=== PATIENT | male | born 1955 | race Caucasian/White ===

== ENCOUNTER 2018-04-04 17:55 | Inpatient (IN) ==
[2018-04-04] MEDS ORDERED: ONDANSETRON 4 MG/2 ML VIAL IV STA (18:14)
[2018-04-04] MEDS ORDERED: ASPIRIN 325 MG TABLET PO STA (18:14)
[2018-04-04] MEDS ORDERED: NITROGLYCERIN 2% OINT 1 INCH/GM PACK TOP STA (18:14)
[2018-04-04] MEDS ORDERED: ENOXAPARIN 120 MG/0.8 ML SYRINGE SUBCUT STA (18:19)
[2018-04-04 18:51] LABS: Basophils % 0.3 % (0.0-0.8); Eosinophils # 0.1 10*3/uL (0.0-0.87); Eosinophils % 1.4 % (0.00-10.9); Immature Granulocytes % 1.4 %; Immature Granulocytes Absolute 0.13 #; Lymphocytes # 1.4 10*3/uL (1.4-4.0); Lymphocytes % 14.4 % (21.2-54.2); Mean Corpuscular HGB Conc 30.6 GM/DL (32-36); Mean Corpuscular Hemoglobin 28 PG (27-34); Mean Corpuscular Volume 92.8 FL (87-102); Mean Platelet Volume 11.9 FL (9.6-12.0); Monocytes % 10.9 % (1.7-12.7); NRBC # 0.04 10*3/uL; Neutrophils # 6.7 10*3/uL (1.4-7.4); Neutrophils % 71.6 % (38.7-73.9); Platelet Count 204 T/CUMM (130-400); Red Blood Count 1.94 MC/CUMM (3.8-5.5); Red Cell Distribution Width 15.9 % (9.3-17.3); White Blood Count 9.4 T/CUMM (4-12)
[2018-04-04 19:12] LABS: INR 1.1; PT Patient Result 11.8 SECS
[2018-04-04 19:13] LABS: Alanine Aminotransferase 47 U/L (16-61); Albumin 2.6 G/DL (3.4-5.0); Alkaline Phosphatase 68 U/L (45-117); Aspartate Amino Transferase 96 U/L (0-37); Bilirubin,Total < 0.39 MG/DL (0.2-1.0); Blood Urea Nitrogen 11 MG/DL (7-18); Calcium 7.9 MG/DL (8.5-10.1); Glucose 188 MG/DL (74-106); Osmolality,Calculated 280.5 MOS/KG (273-304); Potassium 3.8 MMOL/L (3.5-5.1); Sodium 139 MMOL/L (136-145); Total Protein 6.4 G/DL (6.4-8.3)
[2018-04-04 19:16] LABS: Troponin I Only 0.216 NG/ML (0.00-0.045)
[2018-04-04] MEDS ORDERED: PANTOPRAZOLE 40 MG VIAL IV STA (19:21)
[2018-04-04] MEDS ORDERED: diphenhydrAMINE 50 MG/1 ML VIAL IV PRN (19:48)
[2018-04-04] MEDS ORDERED: ALBUTEROL/IPRATROPIUM 3 ML NEB RESP TX PRN (19:59)
[2018-04-04] MEDS ORDERED: ONDANSETRON 4 MG/2 ML VIAL IV PRN (20:32)
[2018-04-04 20:59] LABS: % Iron Saturation 2.6 % (18-50); Ferritin 15.6 ng/ml (26-388)
[2018-04-04] MEDS ORDERED: SODIUM CHLORIDE 0.9% 1,000 ML IV PRN (21:52)
[2018-04-04 22:21] LABS: Hepatitis A Ab IgM Result Negative (Negative); Hepatitis B Core IgM Quant 0.26 Index; Hepatitis B Core IgM Result Negative (Negative); Hepatitis B Surface Ag Quant < 0.10 Index; Hepatitis B Surface Ag Result Negative (Negative); Hepatitis C Virus Ab Quant 0.11 Index; Hepatitis C Virus Ab Result Negative (Negative)
[2018-04-04] MEDS ORDERED: PANTOPRAZOLE INJ 80 MG in SODIUM CHLORIDE 0.9% 100 ML IV ONE (22:30)
[2018-04-04] MEDS: PANTOPRAZOLE INJ 200 MG in SODIUM CHLORIDE 0.9% 250 ML IV SCH (23:58)
[2018-04-05] MEDS: ACETAMINOPHEN 500 MG TABLET PO PRN ×2 (02:00→18:31)
[2018-04-05 06:10] LABS: Albumin 2.4 G/DL (3.4-5.0); Bilirubin,Total 0.7 MG/DL (0.2-1.0); Calcium 7.3 MG/DL (8.5-10.1); Osmolality,Calculated 277.4 MOS/KG (273-304); Potassium 4.3 MMOL/L (3.5-5.1); Total Protein 6.2 G/DL (6.4-8.3)
[2018-04-05] MEDS ORDERED: SODIUM CHLORIDE 0.9% 1,000 ML IV PRN ×2 (06:41→17:49)
[2018-04-05] MEDS: THIAMINE 100 MG TABLET PO SCH (09:01)
[2018-04-05] MEDS: ROSUVASTATIN 20 MG TABLET PO SCH (09:01)
[2018-04-05] MEDS: FOLIC ACID 1 MG TABLET PO SCH (09:01)
[2018-04-05 09:48] LABS: Amorphous Crystals,Urine Occasional /HPF (Few); Apearance,Urine CLEAR (Clear); Bilirubin,Urine Negative (Negative); Blood, Urine Negative (Negative); Glucose,Urine (UA) Negative (Negative); Ketones,Urine Negative (Negative); Mucus,Urine Occasional /LPF (Occasional); Nitrite,Urine Negative (Negative); Protein,Urine Negative; Urine Color Yellow (Yellow); Urine Specific Gravity 1.012 (1.001-1.035); Urine Urobilinogen < 2.0 EU/DL (0.2-1.0)
[2018-04-05 17:06] LABS: Hematocrit 25.2 VOL% (42.0-52.0); Hemoglobin 7.9 GM/DL (14.0-18.0)
[2018-04-05] MEDS ORDERED: FUROSEMIDE 20 MG/2 ML VIAL IV ONE (19:46)
[2018-04-05] MEDS: METOPROLOL TARTRATE 25 MG TABLET PO SCH (21:59)
[2018-04-06] MEDS: PANTOPRAZOLE INJ 200 MG in SODIUM CHLORIDE 0.9% 250 ML IV SCH ×2 (00:40→21:33)
[2018-04-06 07:54] LABS: Basophils # 0.1 10*3/uL (0.0-0.2); Basophils % 0.6 % (0.0-0.8); Eosinophils # 0.2 10*3/uL (0.0-0.87); Eosinophils % 1.9 % (0.00-10.9); Hematocrit 30.3 VOL% (42.0-52.0); Immature Granulocytes % 0.5 %; Immature Granulocytes Absolute 0.04 #; Lymphocytes # 0.9 10*3/uL (1.4-4.0); Lymphocytes % 11.5 % (21.2-54.2); Mean Corpuscular HGB Conc 31.4 GM/DL (32-36); Mean Corpuscular Hemoglobin 29 PG (27-34); Mean Corpuscular Volume 91.3 FL (87-102); Mean Platelet Volume 11.5 FL (9.6-12.0); Monocytes # 0.7 10*3/uL (0.11-0.8); Monocytes % 8.6 % (1.7-12.7); Neutrophils # 6.1 10*3/uL (1.4-7.4); Neutrophils % 76.9 % (38.7-73.9); Platelet Count 142 T/CUMM (130-400); Red Blood Count 3.32 MC/CUMM (3.8-5.5); Red Cell Distribution Width 16.3 % (9.3-17.3); White Blood Count 7.9 T/CUMM (4-12)
[2018-04-06 07:56] LABS: Hemoglobin 9.5 GM/DL (14.0-18.0)
[2018-04-06 08:27] LABS: Calcium 7.5 MG/DL (8.5-10.1); Osmolality,Calculated 278.4 MOS/KG (273-304); Potassium 4.5 MMOL/L (3.5-5.1)
[2018-04-06 08:30] LABS: Risk Ratio 5.61; VLDL CHOLESTEROL 26.8 MG/DL
[2018-04-06] MEDS ORDERED: LIDOCAINE 2% 5 ML VIAL ONE (10:00)
[2018-04-06] MEDS ORDERED: PROPOFOL 200 MG/20 ML VIAL IV ONE (10:00)
[2018-04-06] MEDS: METOPROLOL TARTRATE 25 MG TABLET PO SCH ×2 (15:02→20:14)
[2018-04-06] MEDS: THIAMINE 100 MG TABLET PO SCH (15:29)
[2018-04-06] MEDS: ROSUVASTATIN 20 MG TABLET PO SCH (15:29)
[2018-04-06] MEDS: FOLIC ACID 1 MG TABLET PO SCH (15:29)
[2018-04-06] MEDS: DICLOFENAC 1% GEL 100 GM TUBE TOP SCH ×2 (17:23→20:14)
[2018-04-07 04:47] LABS: Basophils % 0.5 % (0.0-0.8); Calcium 7.9 MG/DL (8.5-10.1); Eosinophils # 0.2 10*3/uL (0.0-0.87); Eosinophils % 2.3 % (0.00-10.9); Hematocrit 29.7 VOL% (42.0-52.0); Hemoglobin 9.3 GM/DL (14.0-18.0); Immature Granulocytes % 0.4 %; Immature Granulocytes Absolute 0.03 #; Lymphocytes # 1.2 10*3/uL (1.4-4.0); Mean Corpuscular HGB Conc 31.3 GM/DL (32-36); Mean Corpuscular Hemoglobin 28 PG (27-34); Mean Corpuscular Volume 90.5 FL (87-102); Mean Platelet Volume 12.4 FL (9.6-12.0); Monocytes # 0.7 10*3/uL (0.11-0.8); Monocytes % 8.9 % (1.7-12.7); Neutrophils # 5.7 10*3/uL (1.4-7.4); Neutrophils % 72.9 % (38.7-73.9); Osmolality,Calculated 276.5 MOS/KG (273-304); Platelet Count 138 T/CUMM (130-400); Potassium 4.2 MMOL/L (3.5-5.1); Red Blood Count 3.28 MC/CUMM (3.8-5.5); Red Cell Distribution Width 16.2 % (9.3-17.3); White Blood Count 7.8 T/CUMM (4-12)
[2018-04-07 08:13] VITALS: BP 133/63
[2018-04-07] MEDS: THIAMINE 100 MG TABLET PO SCH (09:24)
[2018-04-07] MEDS: FOLIC ACID 1 MG TABLET PO SCH (09:24)
[2018-04-07] MEDS: DICLOFENAC 1% GEL 100 GM TUBE TOP SCH (09:24)
[2018-04-07] MEDS: ROSUVASTATIN 20 MG TABLET PO SCH (09:24)
[2018-04-07] MEDS: METOPROLOL TARTRATE 25 MG TABLET PO SCH (09:24)
[2018-04-08] MEDS ORDERED: PANTOPRAZOLE 40 MG VIAL IV SCH (09:00)
[2018-04-09 22:06] LABS: Hemoglobin 5.5 GM/DL (14.0-18.0)
== END 2018-04-07 09:40 | disposition home or self-care (01) | DRG 813 ==
LOC: N.ED 17:55 → N.EDINP 20:32 → SUATTDRO 20:33 → N.EDINP 21:28 → N.CC 22:09 → N.TELES 04-05 20:17
PROVIDERS: ADMIT Internal Medicine Cardiovascular Disease; ATTEND Internal Medicine

== ENCOUNTER 2018-09-12 19:29 | Inpatient (IN) ==
[2018-09-12 20:41] LABS: Basophils # 0.1 10*3/uL (0.0-0.2); Basophils % 0.6 % (0.0-0.8); Eosinophils # 0.1 10*3/uL (0.0-0.87); Eosinophils % 0.3 % (0.00-10.9); Hematocrit 29.4 VOL% (42.0-52.0); Hemoglobin 9.5 GM/DL (14.0-18.0); Immature Granulocytes % 1.5 %; Immature Granulocytes Absolute 0.32 #; Lymphocytes # 2.5 10*3/uL (1.4-4.0); Lymphocytes % 12.1 % (21.2-54.2); Mean Corpuscular HGB Conc 32.3 GM/DL (32-36); Mean Corpuscular Hemoglobin 32 PG (27-34); Mean Corpuscular Volume 98.3 FL (87-102); Mean Platelet Volume 12.1 FL (9.6-12.0); Monocytes % 4.6 % (1.7-12.7); Neutrophils # 16.8 10*3/uL (1.4-7.4); Neutrophils % 80.9 % (38.7-73.9); Platelet Count 153 T/CUMM (130-400); Red Blood Count 2.99 MC/CUMM (3.8-5.5); Red Cell Distribution Width 14.9 % (9.3-17.3); White Blood Count 20.7 T/CUMM (4-12)
[2018-09-12 21:02] LABS: Hypochromasia Slight; Lymphocytes 7 % (20-55); Macrocytosis Slight; Platelet Estimate Normal; Segmented Neutrophils 92 % (50-85); Total Cells Counted 100
[2018-09-12 21:07] LABS: Albumin 2.7 G/DL (3.4-5.0); Bilirubin,Total 0.7 MG/DL (0.2-1.0); Calcium 8.5 MG/DL (8.5-10.1); Potassium 4.8 MMOL/L (3.5-5.1); Total Protein 6.8 G/DL (6.4-8.3)
[2018-09-12] MEDS ORDERED: PANTOPRAZOLE INJ 80 MG in SODIUM CHLORIDE 0.9% 100 ML IV STA (21:23)
[2018-09-12] MEDS ORDERED: ONDANSETRON 4 MG/2 ML VIAL IV STA (21:23)
[2018-09-12] MEDS ORDERED: OCTREOTIDE 100 MCG/ML SYRINGE IV STA (21:23)
[2018-09-12] MEDS ORDERED: SODIUM CHLORIDE 0.9% 500 ML IV STA (21:23)
[2018-09-12] MEDS ORDERED: THIAMINE INJ 100 MG, FOLIC ACID INJ 1 MG, MAGNESIUM SULF INJ 2 GM, MULTIVITAMIN INJ 10 ... IV ONE (21:24)
[2018-09-12] MEDS ORDERED: ONDANSETRON 4 MG/2 ML VIAL IV PRN (21:49)
[2018-09-12] MEDS ORDERED: ALBUTEROL 2.5 MG/3 ML NEB RESP TX PRN (21:49)
[2018-09-12] MEDS ORDERED: LORazepam 2 MG/1 ML VIAL IV PRN (21:49)
[2018-09-12] MEDS ORDERED: SODIUM CHLORIDE 0.9% 1,000 ML IV PRN (21:55)
[2018-09-12 22:00] LABS: INR 1.2; PT Patient Result 13.4 SECS
[2018-09-12] MEDS: SODIUM CHLORIDE 0.9% 1,000 ML IV SCH (23:25)
[2018-09-13 01:17] LABS: Hematocrit 24.6 VOL% (42.0-52.0); Hemoglobin 7.8 GM/DL (14.0-18.0)
[2018-09-13] MEDS: PANTOPRAZOLE 40 MG VIAL IV SCH ×2 (09:05→20:45)
[2018-09-13 09:51] LABS: Hematocrit 25.5 VOL% (42.0-52.0); Hemoglobin 8.3 GM/DL (14.0-18.0)
[2018-09-13] MEDS ORDERED: ONDANSETRON 4 MG/2 ML VIAL ONE (10:36)
[2018-09-13] MEDS ORDERED: LIDOCAINE 2% 5 ML VIAL ONE (11:02)
[2018-09-13] MEDS ORDERED: PROPOFOL 200 MG/20 ML VIAL IV ONE (11:02)
[2018-09-13] MEDS ORDERED: ETOMIDATE 20 MG/10 ML VIAL IV ONE (11:02)
[2018-09-13] MEDS: FOLIC ACID 1 MG TABLET PO SCH (13:13)
[2018-09-13] MEDS: MULTIVITAMIN (CENTRUM) TABLET PO SCH (13:13)
[2018-09-13] MEDS: THIAMINE 100 MG TABLET PO SCH (13:14)
[2018-09-13] MEDS: SODIUM CHLORIDE 0.9% 1,000 ML IV SCH ×2 (13:18→23:50)
[2018-09-13] MEDS ORDERED: MORPHINE 4 MG/1 ML VIAL IV PRN (15:55)
[2018-09-13] MEDS: OCTREOTIDE 500 MCG in SODIUM CHLORIDE 0.9% 100 ML IV SCH (16:48)
[2018-09-13 21:40] LABS: Hematocrit 21.5 VOL% (42.0-52.0)
[2018-09-13] MEDS ORDERED: SODIUM CHLORIDE 0.9% 1,000 ML IV PRN (21:55)
[2018-09-14] MEDS: OCTREOTIDE 500 MCG in SODIUM CHLORIDE 0.9% 100 ML IV SCH ×3 (02:59→22:52)
[2018-09-14 04:51] LABS: Hematocrit 24.6 VOL% (42.0-52.0)
[2018-09-14 05:18] LABS: Calcium 7.3 MG/DL (8.5-10.1); Osmolality,Calculated 289.3 MOS/KG (273-304); Potassium 4.6 MMOL/L (3.5-5.1)
[2018-09-14] MEDS: SODIUM CHLORIDE 0.9% 1,000 ML IV SCH ×2 (06:09→15:15)
[2018-09-14 07:36] LABS: Basophils # 0.1 10*3/uL (0.0-0.2); Basophils % 0.8 % (0.0-0.8); Eosinophils # 0.2 10*3/uL (0.0-0.87); Eosinophils % 2.2 % (0.00-10.9); Hematocrit 24.4 VOL% (42.0-52.0); Immature Granulocytes Absolute 0.08 #; Lymphocytes # 1.7 10*3/uL (1.4-4.0); Lymphocytes % 20.6 % (21.2-54.2); Mean Corpuscular HGB Conc 32.8 GM/DL (32-36); Mean Corpuscular Hemoglobin 31 PG (27-34); Mean Corpuscular Volume 93.1 FL (87-102); Mean Platelet Volume 11.9 FL (9.6-12.0); Monocytes # 0.7 10*3/uL (0.11-0.8); Monocytes % 8.3 % (1.7-12.7); NRBC # 0.02 10*3/uL; Neutrophils # 5.5 10*3/uL (1.4-7.4); Neutrophils % 67.1 % (38.7-73.9); Red Blood Count 2.62 MC/CUMM (3.8-5.5); Red Cell Distribution Width 17.1 % (9.3-17.3)
[2018-09-14 07:45] LABS: Platelet Count 74 T/CUMM (130-400); White Blood Count 8.2 T/CUMM (4-12)
[2018-09-14 08:20] LABS: Anisocytosis 1+; Hypochromasia 1+; Microcytosis 1+; Platelet Estimate Decreased; Spherocytes Slight
[2018-09-14] MEDS: PANTOPRAZOLE 40 MG VIAL IV SCH ×2 (08:32→21:56)
[2018-09-14] MEDS: MULTIVITAMIN (CENTRUM) TABLET PO SCH (08:37)
[2018-09-14] MEDS: FOLIC ACID 1 MG TABLET PO SCH (08:37)
[2018-09-14] MEDS: THIAMINE 100 MG TABLET PO SCH (08:37)
[2018-09-14] MEDS ORDERED: PHENYLEPHRINE 1 MG/10 ML SYRINGE IV ONE (09:00)
[2018-09-14] MEDS ORDERED: LIDOCAINE 2% 5 ML VIAL ONE (09:00)
[2018-09-14] MEDS ORDERED: PROPOFOL 200 MG/20 ML VIAL IV ONE (09:00)
[2018-09-14] MEDS ORDERED: ETOMIDATE 20 MG/10 ML VIAL IV ONE (09:00)
[2018-09-14 12:50] LABS: Hematocrit 23.8 VOL% (42.0-52.0); Hemoglobin 7.8 GM/DL (14.0-18.0)
[2018-09-15] MEDS: SODIUM CHLORIDE 0.9% 1,000 ML IV SCH ×3 (00:48→21:03)
[2018-09-15 05:07] LABS: Basophils # 0.1 10*3/uL (0.0-0.2); Basophils % 1.1 % (0.0-0.8); Eosinophils # 0.1 10*3/uL (0.0-0.87); Eosinophils % 2.4 % (0.00-10.9); Hematocrit 25.2 VOL% (42.0-52.0); Hemoglobin 8.2 GM/DL (14.0-18.0); Immature Granulocytes % 0.9 %; Immature Granulocytes Absolute 0.05 #; Lymphocytes # 1.3 10*3/uL (1.4-4.0); Lymphocytes % 23.9 % (21.2-54.2); Mean Corpuscular HGB Conc 32.5 GM/DL (32-36); Mean Corpuscular Hemoglobin 30 PG (27-34); Mean Corpuscular Volume 93.3 FL (87-102); Mean Platelet Volume 11.8 FL (9.6-12.0); Monocytes # 0.5 10*3/uL (0.11-0.8); Monocytes % 8.4 % (1.7-12.7); NRBC # 0.02 10*3/uL; Neutrophils # 3.5 10*3/uL (1.4-7.4); Neutrophils % 63.3 % (38.7-73.9); Platelet Count 68 T/CUMM (130-400); White Blood Count 5.5 T/CUMM (4-12)
[2018-09-15 05:28] LABS: Calcium 7.4 MG/DL (8.5-10.1); Osmolality,Calculated 288.8 MOS/KG (273-304); Potassium 3.8 MMOL/L (3.5-5.1)
[2018-09-15 06:08] LABS: Band Neutrophils 4 % (0-10); Eosinophils 4 % (0-10); Lymphocytes 16 % (20-55); Segmented Neutrophils 67 % (50-85); Total Cells Counted 100
[2018-09-15 06:10] LABS: Anisocytosis 1+; Hypochromasia 1+; Microcytosis Slight; Platelet Estimate Decreased
[2018-09-15] MEDS: OCTREOTIDE 500 MCG in SODIUM CHLORIDE 0.9% 100 ML IV SCH ×2 (07:49→20:40)
[2018-09-15] MEDS: FOLIC ACID 1 MG TABLET PO SCH (08:25)
[2018-09-15] MEDS: PANTOPRAZOLE 40 MG VIAL IV SCH (08:25)
[2018-09-15] MEDS: THIAMINE 100 MG TABLET PO SCH (08:25)
[2018-09-15] MEDS: MULTIVITAMIN (CENTRUM) TABLET PO SCH (08:25)
[2018-09-15] MEDS: PANTOPRAZOLE 40 MG TABLET PO SCH ×2 (12:34→20:56)
[2018-09-16 04:47] LABS: Basophils # 0.1 10*3/uL (0.0-0.2); Basophils % 0.9 % (0.0-0.8); Eosinophils # 0.2 10*3/uL (0.0-0.87); Eosinophils % 3.3 % (0.00-10.9); Hemoglobin 8.7 GM/DL (14.0-18.0); Immature Granulocytes % 0.7 %; Immature Granulocytes Absolute 0.04 #; Lymphocytes # 1.3 10*3/uL (1.4-4.0); Lymphocytes % 23.3 % (21.2-54.2); Mean Corpuscular HGB Conc 32.2 GM/DL (32-36); Mean Corpuscular Hemoglobin 31 PG (27-34); Mean Corpuscular Volume 95.1 FL (87-102); Mean Platelet Volume 11.9 FL (9.6-12.0); Monocytes # 0.6 10*3/uL (0.11-0.8); Monocytes % 10.5 % (1.7-12.7); Neutrophils # 3.5 10*3/uL (1.4-7.4); Neutrophils % 61.3 % (38.7-73.9); Red Blood Count 2.84 MC/CUMM (3.8-5.5); Red Cell Distribution Width 16.1 % (9.3-17.3); White Blood Count 5.7 T/CUMM (4-12)
[2018-09-16 05:00] LABS: Calcium 7.5 MG/DL (8.5-10.1); Potassium 3.9 MMOL/L (3.5-5.1)
[2018-09-16 05:15] LABS: Platelet Count 77 T/CUMM (130-400)
[2018-09-16 06:50] LABS: Hypochromasia 1+
[2018-09-16 06:51] LABS: Platelet Estimate Decreased; Polychromasia Few
[2018-09-16] MEDS: OCTREOTIDE 500 MCG in SODIUM CHLORIDE 0.9% 100 ML IV SCH (07:05)
[2018-09-16] MEDS: SODIUM CHLORIDE 0.9% 1,000 ML IV SCH (07:24)
[2018-09-16] MEDS: MULTIVITAMIN (CENTRUM) TABLET PO SCH (08:49)
[2018-09-16] MEDS: THIAMINE 100 MG TABLET PO SCH (08:49)
[2018-09-16] MEDS: FOLIC ACID 1 MG TABLET PO SCH (08:49)
[2018-09-16] MEDS: PANTOPRAZOLE 40 MG TABLET PO SCH (08:49)
[2018-09-16] MEDS ORDERED: oxyCODONE IR 5 MG TABLET PO PRN (09:10)
[2018-09-16 09:17] VITALS: BP 132/67
== END 2018-09-16 10:29 | disposition home or self-care (01) | DRG 300 ==
LOC: N.ED 19:29 → N.ICU 21:49
PROVIDERS: ADMIT Internal Medicine; ATTEND Internal Medicine